=== PATIENT | male | born 1955 | race Caucasian/White ===

== ENCOUNTER 2020-01-09 14:35 | IRF | payer MEDICARE, OTHER, SELFPAY ==
[2020-01-09 15:04] VITALS: O2SAT 94
--- NOTE | 2020-01-09 15:16 | ADMGEN ---
This patient, Get Pruitt, was admitted to [facility] Room 223-02. Patient/family oriented to hospital policies and general routines including ID bracelet, bed and alarms, visiting hours, pain management, procedures, bathroom and other care routines, personal items, smoking policy, room service/diet, and visiting hours. Information on how to activate the Rapid Response Team has been discussed. Patient/Family are encouraged to report perceived risks to care and to ask questions if they do not understand what they are told or what they should do. Patient [facility] transported [facility], ems reported that patient was stable during the ride, patient states I became very anxious and they turned up my oxygen ems had patient on 5 liters. Report rec'd stated he uses 3 liters. Was placed on 3 liters upon arrival. He is alert and oriented. Goal to get home MAK with as much independence as possible
[2020-01-09 16:04] VITALS: BP 119/88; PULSE 68; RESP 18; TEMP 36.1; O2SAT 98; BMI 38.5
[2020-01-09 17:00] VITALS: BMI 38.5
[2020-01-09] MEDS: APIXABAN 5 MG TABLET PO (18:21)
[2020-01-09] MEDS: oxyCODONE HCL (*CRX) 5 MG TAB IR PO (18:22)
[2020-01-09 20:25] VITALS: PULSE 72; RESP 18; O2SAT 95
[2020-01-09] MEDS: SERTRALINE HCL 50 MG TABLET PO (21:11)
[2020-01-09] MEDS: busPIRone HCL 2.5 MG TABLET PO (21:11)
[2020-01-09] MEDS: hydrOXYzine HCL 25 MG TABLET PO (21:11)
[2020-01-09] MEDS: PANTOPRAZOLE 40 MG TABLET PO (21:11)
[2020-01-09] MEDS: ATORVASTATIN 40 MG TABLET PO (21:12)
[2020-01-09] MEDS: busPIRone HCL 5 MG TABLET PO (21:12)
[2020-01-09 22:00] VITALS: BP 98/46; PULSE 72; RESP 22; TEMP 36.4; O2SAT 97
[2020-01-09 22:04] VITALS: PULSE 78; O2SAT 93
[2020-01-10] VITALS (7 sets, daily range): BP systolic 99–114; BP diastolic 52–84; PULSE 71–104; RESP 19–20; TEMP 36.1–36.3; O2SAT 94–98
[2020-01-10 04:35] LABS: Basophils Absolute Auto 0.1 K/mm3 (0.0-0.1); Eosinophils Absolute Auto 0.1 K/mm3 (0-0.3); Eosinophils Percent Auto 1.4 % (0-4.4); Hematocrit 36.6 % (42.0-52.0); Hemoglobin 11.4 g/dL (14.0-18.0); Immature Granulocyte Absolute 0.07 K/mm3 (0.00-0.031); Immature Granulocyte Percent A 0.8 % (0-0.5); Lymphocytes Absolute Auto 1.58 K/mm3 (0.9-3.2); Lymphocytes Percent Auto 19.1 % (18.3-44.2); Mean Corpuscular HGB Conc 31.1 g/dl (32-36); Mean Corpuscular Hemoglobin 30.6 pg (26-34); Mean Corpuscular Volume 98.1 fl (80-100); Mean Platelet Volume 9.9 fl (7.4-10.4); Monocytes Absolute Auto 0.7 K/mm3 (0.1-0.6); Monocytes Percent Auto 8.9 % (2.6-8.5); Neutrophils Absolute Auto 5.7 K/mm3 (1.3-6.7); Neutrophils Percent Auto 68.8 % (45.5-73.1); Platelet Count Result 278 k/mm3 (150-375); Red Blood Count 3.73 M/mm3 (4.6-6.20); Red Cell Distribution Width 14.2 % (11.5-14.5); White Blood Count 8.3 K/mm3 (4.5-10.0)
[2020-01-10 04:52] LABS: Anion Gap 5 mmol/L (8-16); Blood Urea Nitrogen 20 mg/dL (9-20); Calcium 8.8 mg/dL (8.4-10.2); Carbon Dioxide 35 mmol/L (22-30); Chloride 99 mmol/L (98-107); Estimated CRCL calculation 66 ml/min; Estimated Glomerular Filt Rate 55; Glucose 156 mg/dL (75-110); Sodium 139 mmol/L (137-145)
[2020-01-10] MEDS: hydrOXYzine HCL 25 MG TABLET PO ×3 (06:01→21:13)
[2020-01-10 07:58] LABS: Glucose Point of Care 135 (65-105)
[2020-01-10] MEDS: EZETIMIBE 10 MG TABLET PO (09:38)
[2020-01-10] MEDS: busPIRone HCL 2.5 MG TABLET PO ×2 (09:38→21:13)
[2020-01-10] MEDS: FUROSEMIDE 40 MG TABLET PO (09:39)
[2020-01-10] MEDS: PANTOPRAZOLE 40 MG TABLET PO ×2 (09:40→21:13)
[2020-01-10] MEDS: METOPROLOL SUCCINATE EXT REL 50 MG TABCR PO (09:40)
[2020-01-10] MEDS: ASPIRIN 81 MG CHEWABLE TABLET PO (09:42)
[2020-01-10] MEDS: APIXABAN 5 MG TABLET PO ×2 (09:42→17:46)
[2020-01-10] MEDS: metFORMIN HCL XR 500 MG TAB.SR.24H 1000 MG PO (09:43)
[2020-01-10] MEDS: busPIRone HCL 5 MG TABLET PO ×2 (09:43→21:13)
[2020-01-10] MEDS: AMIODARONE HCL 200 MG TABLET PO (09:43)
[2020-01-10] MEDS: LIDOCAINE 5% PATCH 1 PATCH TOPICAL (09:48)
[2020-01-10] MEDS: oxyCODONE HCL (*CRX) 5 MG TAB IR PO (09:49)
--- NOTE | 2020-01-10 09:53 | WPDREHABHP ---
H&P: HPI History of Present Illness Date/Time: HISTORY OF PRESENT ILLNESS: The patient's primary rehab impairment category is [] The etiologic diagnosis is [] I saw this patient [id number] on [] The patient is a [] Therapy was initiated at the acute care facility and the patient transferred to us from [[facility]] on [] FALLS OR SURGERIES: The patient has had [no] major surgeries in the 100 days prior to admission. They had [no] falls in the past year. They had [no] falls with injury in the past year. PAST MEDICAL HISTORY: [] PAST SURGICAL HISTORY: [] SOCIAL HISTORY: [] FAMILY HISTORY: [] PRIOR LEVEL OF FUNCTION: Eating was [INDEPENDENT] Oral Care was [INDEPENDENT] Toileting Hygiene was [INDEPENDENT] Shower/Bathing was [INDEPENDENT] Upper Body Dressing was [INDEPENDENT] Lower Body Dressing was [INDEPENDENT] Donning/[place] Footwear was [INDEPENDENT] Rolling Left and Right was [INDEPENDENT] Sit to Lying was [INDEPENDENT] Lying to Sitting was [INDEPENDENT] Sit to Stand was [INDEPENDENT] Bed to Chair Transfers was [INDEPENDENT] Toilet Transfers was [INDEPENDENT] Walking was [INDEPENDENT] [>500 feet] with [NO DEVICE] Wheelchair Mobility was [NOT APPLICABLE PRIOR TO ADMISSION] Stairs were [INDEPENDENT] CURRENT LEVEL OF FUNCTION: Eating was [SET UP ONLY] Oral Care was [SET UP ONLY] Toileting Hygiene was [] Shower/Bathing was [] Upper Body Dressing was [] Lower Body Dressing was [] Donning/[place] Footwear was [] Rolling Left and Right was [] Sit to Lying was [] Lying to Sitting was [] Sit to Stand was [] Bed to Chair Transfers were [] Toilet Transfers were [] Walking was [] Wheelchair Mobility was [] Stairs were [] GOALS: Our therapists will evaluate the patient and establish the goals. However, upon pre-admission screening, the expected goals were to be [INDEPENDENT] with self-care, [INDEPENDENT] with transfers, and [INDEPENDENT] with functional mobility so that the patient can return home. ESTIMATED LENGTH OF STAY: [10-14 days] POTENTIAL BARRIERS TO DISCHARGE: [Patient lives alone.] [Family needs training.] [Severity of condition.] [Architectural barriers.] ACTIVE CO-MORBIDITIES PRESENT ON ADMISSION: Active co-morbidities include []. The above co-morbidities impact the patient's function and/or functional outcome by [] 01/10/20 09:53 Chief complaint: Spinal/Traumatic C4 Fracture With Surgery Narrative: Get Pruitt is a 64 year old maleHISTORY OF PRESENT ILLNESS: The patient's primary rehab impairment category is The etiologic diagnosis is [] I saw this patient [id number] on [] The patient is a [] Therapy was initiated at the acute care facility and the patient transferred to us from [[facility]] on [] FALLS OR SURGERIES: The patient has had [no] major surgeries in the 100 days prior to admission. They had [no] falls in the past year. They had [no] falls with injury in the past year. PAST MEDICAL HISTORY: [] PAST SURGICAL HISTORY: [] SOCIAL HISTORY: [] FAMILY HISTORY: [] PRIOR LEVEL OF FUNCTION: Eating was [INDEPENDENT] Oral Care was [INDEPENDENT] Toileting Hygiene was [INDEPENDENT] Shower/Bathing was [INDEPENDENT] Upper Body Dressing was [INDEPENDENT] Lower Body Dressing was [INDEPENDENT] Donning/[place] Footwear was [INDEPENDENT] Rolling Left and Right was [INDEPENDENT] Sit to Lying was [INDEPENDENT] Lying to Sitting was [INDEPENDENT] Sit to Stand was [INDEPENDENT] Bed to Chair Transfers was [INDEPENDENT] Toilet Transfers was [INDEPENDENT] Walking was [INDEPENDENT] [>500 feet] with [NO DEVICE] Wheelchair Mobility was [NOT APPLICABLE PRIOR TO ADMISSION] Stairs were [INDEPENDENT] CURRENT LEVEL OF FUNCTION: Eating was [SET UP ONLY] Oral Care was [SET UP ONLY] Toileting Hygiene was [] Shower/Bathing was [] Upper Body Dressing was [] Lower Body Dressing was [] Donning/[place] Footwear was [] Rolling
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
--- NOTE | 2020-01-10 13:22 | RPD ---
INDIVIDUALIZED PLAN OF CARE FOR Get Pruitt Brief Synthesis of Pre-Admission Screen, Post-Admission Evaluation and Therapy Evaluations: The patient presents to rehab with a C4 odontoid type III fracture status post C4 posterior spinal instrumented fusion. Comorbidities include chronic obstructive pulmonary disease, type 2 diabetes mellitus, heart failure with preserved ejection fraction, atrial fibrillation, peripheral vascular disease, coronary artery disease, anxiety, acute postoperative pain, acute blood loss anemia, and left elbow fracture. The complexity of the patient's medical management, nursing, and therapy needs require an inpatient rehab hospital stay with a physician-led interdisciplinary team approach. The patient?s needs will be best met in an intensive program vs. at a lower level of care. The patient requires physician services for medical oversight,management of post-op complications in setting of present comorbidities, and pain management. The patient requires nursing services for anticoagulation therapy, diabetes training, DVT prophylactics, infection protection, medication management and education, pressure relief, and wound care. Deficits include:ADLs, Balance, Endurance, Family Training/Education, Mobility, Pain Management, ROM, Safety, Strength, and Transfers [employer]/Case Management for: Discharge Planning and Patient/Family Counseling Physical Therapy: 5 days per week for 90 minutes. Treatments may include: Therapeutic Exercise, Gait Training, Neuromuscular Re-education, Transfer Training, Community Reintegration, Bed Mobility, Patient/Family Education, Wheelchair Mobility Group Therapy/Concurrent Therapy Rationales: -Improve attention span during functional activities in a distracted environment. -Enhance problem solving and/or adequate judgment skills during functional activities in a distracted environment. -Promote increased safety awareness in a distracted environment to reduce fall risk with functional tasks, transfers, and ambulation to allow a more safe, self-sufficient return to the home environment. -Improve dynamic balance skills to promote safety and independence with functional activities in a distracted environment for maximum gain. Occupational Therapy: 5 days per week for 90 minutes. Treatments may include: Therapeutic Exercise, Therapeutic Activity, Cognitive Training, Self-Care Transfer Training, Community Reintegration, Home Management, Patient/Family Education, Wheelchair Mobility Training, Energy Conservation Training Group Therapy/Concurrent Therapy Rationales: -Allow therapist to observe and teach generalization and carry-over of skills learned in individual therapy. -Enhance problem solving and sequencing skills during therapeutic activities in a distracted environment. -Promote increased safety awareness in a realistic setting to reduce fall risk with functional tasks due to visual and verbal distractions. -Increase functional level with ADLs, ADL transfers and use of adaptive equipment through therapeutic activities with others while promoting safety to allow a more safe, self-sufficient return home. Medical Prognosis: Good Anticipated Length of Stay: 14 days Rehab Goals: Eating Goal: 06-Independent Oral Hygiene Goal: 06-Independent Toileting Hygiene Goal: 06-Independent Shower/Bathe Self Goal: 04-Supervision or Touching Assistance Upper Body Dressing Goal: 04-Supervision or Touching Assistance Lower Body Dressing Goal: 06-Independent Putting On/Taking Off Footwear Goal: 06-Independent Rolling Left and Right Goal: 06-Independent Sit to Lying Goal: 06-Independent Lying to Sitting on Side of Bed Goal: 06-Independent Sit to Stand Goal: 06-Independent Chair/Zuc-jn-[id number] Transfer Goal: 06-Independent Toilet Transfer Goal: 06-Independent Car Transfer Goal: 06-Independent Walk 10' Goal: 06-Independent Walk 50' with Two Turns Goal: 06-Independent Walk 150' Goal: 09-Not Applicable Walk 10' on Une
[2020-01-10] MEDS: SERTRALINE HCL 50 MG TABLET PO (21:13)
[2020-01-10] MEDS: ATORVASTATIN 40 MG TABLET PO (21:13)
[2020-01-11] VITALS (7 sets, daily range): BP systolic 118–141; BP diastolic 54–92; PULSE 66–120; RESP 19–20; TEMP 36.1–36.2; O2SAT 96–100; BMI 38.5
[2020-01-11] MEDS: hydrOXYzine HCL 25 MG TABLET PO ×3 (06:06→20:55)
[2020-01-11 06:13] LABS: Glucose Point of Care 137 (65-105)
[2020-01-11] MEDS: APIXABAN 5 MG TABLET PO ×2 (08:25→16:57)
[2020-01-11] MEDS: EZETIMIBE 10 MG TABLET PO (08:25)
[2020-01-11] MEDS: busPIRone HCL 2.5 MG TABLET PO ×2 (08:26→20:56)
[2020-01-11] MEDS: PANTOPRAZOLE 40 MG TABLET PO ×2 (08:26→20:56)
[2020-01-11] MEDS: metFORMIN HCL XR 500 MG TAB.SR.24H 1000 MG PO (08:26)
[2020-01-11] MEDS: busPIRone HCL 5 MG TABLET PO ×2 (08:26→20:55)
[2020-01-11] MEDS: AMIODARONE HCL 200 MG TABLET PO (08:26)
[2020-01-11] MEDS: FUROSEMIDE 40 MG TABLET PO ×2 (08:26→17:00)
[2020-01-11] MEDS: ASPIRIN 81 MG CHEWABLE TABLET PO (08:27)
[2020-01-11] MEDS: METOPROLOL SUCCINATE EXT REL 50 MG TABCR PO (08:27)
[2020-01-11] MEDS: oxyCODONE HCL (*CRX) 5 MG TAB IR PO (08:28)
--- NOTE | 2020-01-11 08:30 | PC.NURSE ---
pt refuses miralax. states he had a bm this morning. updated.
[2020-01-11] MEDS: ACETAMINOPHEN 500 MG TABLET PO (13:06)
[2020-01-11] MEDS: SERTRALINE HCL 50 MG TABLET PO (20:55)
[2020-01-11] MEDS: ATORVASTATIN 40 MG TABLET PO (20:55)
[2020-01-12 06:00] VITALS: BP 95/66; PULSE 74; RESP 18; TEMP 36.2; O2SAT 98
[2020-01-12] MEDS: oxyCODONE HCL (*CRX) 5 MG TAB IR PO ×2 (06:05→15:16)
[2020-01-12] MEDS: hydrOXYzine HCL 25 MG TABLET PO ×3 (06:07→19:52)
[2020-01-12 07:00] LABS: Glucose Point of Care 166 (65-105)
[2020-01-12] MEDS: metFORMIN HCL XR 500 MG TAB.SR.24H 1000 MG PO (08:50)
[2020-01-12] MEDS: APIXABAN 5 MG TABLET PO ×2 (08:51→17:28)
[2020-01-12] MEDS: busPIRone HCL 2.5 MG TABLET PO ×2 (08:51→19:51)
[2020-01-12] MEDS: ASPIRIN 81 MG CHEWABLE TABLET PO (08:51)
[2020-01-12] MEDS: busPIRone HCL 5 MG TABLET PO ×2 (08:51→19:51)
[2020-01-12] MEDS: PANTOPRAZOLE 40 MG TABLET PO ×2 (08:52→19:51)
[2020-01-12] MEDS: FUROSEMIDE 80 MG TABLET PO (08:52)
[2020-01-12] MEDS: EZETIMIBE 10 MG TABLET PO (08:52)
[2020-01-12 08:53] VITALS: PULSE 74
[2020-01-12] MEDS: AMIODARONE HCL 200 MG TABLET PO (08:53)
[2020-01-12] MEDS: METOPROLOL SUCCINATE EXT REL 50 MG TABCR PO (08:53)
--- NOTE | 2020-01-12 11:45 | WPDNEURORHBP ---
Subjective Date/time seen: 01/12/20 11:45 64 years old with cervical fracture and spinal cord dysfunction in addition to the comorbid conditions of COPD, diabetes mellitus, heart failure with ejection fraction of 60 to 65%, atrial fibrillation, peripheral vascular disease, and coronary artery disease with history of stenting, hypercholesterolemia, hypertension, remains actively involved in the physical therapy Functional Status Ambulation Ability Ability to Ambulate 10 Feet: Contact Guard Ability to Ambulate 50 Feet With 2 Turns: Contact Guard Ambulation Assistive Devices: Cane Exam Narrative: Exam Narrative: on examination today he is awake alert cooperative no acute distress his speech nor dysphasic no dysarthric not dysphonic ear nose throat examination normal heart regular lungs clear abdomen is soft and neuro examination unchanged therapy will be continued as such Objective Data Vital Signs Vital Signs: Vital Signs - 24 hr 01/11/20 14:00 01/11/20 17:00 01/11/20 20:40 Temperature 36.2 C L Pulse Rate 120 H 72 74 Respiratory Rate 20 20 Blood Pressure 118/82 Pulse Oximetry 96 100 01/11/20 22:00 01/12/20 06:00 01/12/20 08:53 Temperature 36.1 C L 36.2 C L Pulse Rate 74 74 74 Respiratory Rate 20 18 Blood Pressure 118/54 L 95/66 L Pulse Oximetry 100 98 Intake/Output Intake/Output: Intake & Output 01/09/20 01/10/20 01/11/20 01/12/20 23:59 23:59 23:59 23:59 Intake Total 480 720 720 Balance 480 720 720 Meds/Results Medications: Active Medications Generic Name Dose Route Start Last Admin Trade Name Freq PRN Reason Stop Dose Admin Acetaminophen 500 mg 01/09/20 16:25 01/11/20 13:06 Acetaminophen 500 Mg Tablet PO 500 mg Q6H PRN Administration Fever Or Pain Rated 1-3 Albuterol 2 puff 01/09/20 16:25 Albuterol Sulfate (*Sp) Aerosol 1 Puff INHALATION Q6H PRN Wheezing Amiodarone HCl 200 mg 01/10/20 09:00 01/12/20 08:53 Amiodarone Hcl 200 Mg Tablet PO 200 mg DAILY HERMELINDA Administration Apixaban 5 mg 01/09/20 17:00 01/12/20 08:51 Apixaban 5 Mg Tablet PO 5 mg BID HERMELINDA Administration Aspirin 81 mg 01/10/20 09:00 01/12/20 08:51 Aspirin 81 Mg Chewable Tablet PO 81 mg DAILY HERMELINDA Administration Atorvastatin Calcium 40 mg 01/09/20 21:00 01/11/20 20:55 Atorvastatin 40 Mg Tablet PO 40 mg HS HERMELINDA Administration Buspirone HCl 5 mg 01/09/20 21:00 01/12/20 08:51 Buspirone Hcl 5 Mg Tablet PO 5 mg Q12HR HERMELINDA Administration Buspirone HCl 2.5 mg 01/09/20 21:00 01/12/20 08:51 Buspirone Hcl 2.5 Mg Tablet PO 2.5 mg Q12HR HERMELINDA Administration Dextrose 12.5 gm 01/09/20 18:38 Dextrose 50% 25 Gm/50 Ml Syringe IV PUSH PRN PRN Hypoglycemia Protocol Ezetimibe 10 mg 01/10/20 09:00 01/12/20 08:52 Ezetimibe 10 Mg Tablet PO 10 mg DAILY HERMELINDA Administration Furosemide 40 mg 01/11/20 18:00 01/11/20 17:00 Furosemide 40 Mg Tablet PO 40 mg EVENING HERMELINDA Administration Furosemide 80 mg 01/12/20 09:00 01/12/20 08:52 Furosemide 80 Mg Tablet PO 80 mg DAILY HERMELINDA Administration Glucagon 1 mg 01/09/20 18:38 Glucagon For Inj 1 Mg Vial IM PRN PRN Hypoglycemia Protocol Glucose 15 gm 01/09/20 18:38 Glucose Oral Gel 15 Gm Of Glucse In 37.5 Gm Tube PO PRN PRN Hypoglycemia Protocol Hydroxyzine HCl 25 mg 01/09/20 22:00 01/12/20 06:07 Hydroxyzine Hcl 25 Mg Tablet PO 25 mg Q8HR HERMELINDA Administration Dextrose 1,000 mls @ 100 mls/hr 01/09/20 18:38 Dextrose 5% 1,000 Ml IVPB PRN PRN Hypoglycemia Protocol Lidocaine 1 patch 01/09/20 16:25 01/10/20 09:48 Lidocaine 5% Patch TOPICAL 1 patch DAILY PRN Administration Pain Metformin HCl 1,000 mg 01/10/20 08:00 01/12/20 08:50 Metformin Hcl Xr 500 Mg Tab.Sr.24h PO 1,000 mg DAILY@0800 HERMELINDA Administration Metoprolol Succinate 50 mg 01/10/20 09:00 01/12/20 08:53
[2020-01-12 14:00] VITALS: BP 101/85; PULSE 86; RESP 20; TEMP 36.8; O2SAT 95
[2020-01-12] MEDS: FUROSEMIDE 40 MG TABLET PO (17:28)
[2020-01-12 19:40] VITALS: PULSE 86; RESP 20; O2SAT 95
[2020-01-12] MEDS: SERTRALINE HCL 50 MG TABLET PO (19:51)
[2020-01-12] MEDS: ATORVASTATIN 40 MG TABLET PO (19:52)
[2020-01-12 21:30] VITALS: PULSE 76; O2SAT 94
[2020-01-12 22:00] VITALS: BP 98/74; PULSE 65; RESP 18; TEMP 36.1; O2SAT 97
[2020-01-13 06:00] VITALS: BP 97/62; PULSE 81; RESP 18; TEMP 36.2; O2SAT 99
[2020-01-13] MEDS: hydrOXYzine HCL 25 MG TABLET PO ×3 (06:01→20:22)
[2020-01-13 06:49] LABS: Glucose Point of Care 213 (65-105)
--- NOTE | 2020-01-13 09:28 | PHAR ---
The patient's home med of Umeclidinium-Vilanterol 62.5-25 mcg/actuation Blister With Device has been verified.
[2020-01-13] MEDS: metFORMIN HCL XR 500 MG TAB.SR.24H 1000 MG PO (09:40)
[2020-01-13 09:41] VITALS: PULSE 81
[2020-01-13] MEDS: AMIODARONE HCL 200 MG TABLET PO (09:41)
[2020-01-13] MEDS: ASPIRIN 81 MG CHEWABLE TABLET PO (09:41)
[2020-01-13] MEDS: APIXABAN 5 MG TABLET PO ×2 (09:41→16:55)
[2020-01-13] MEDS: busPIRone HCL 5 MG TABLET PO ×2 (09:42→20:22)
[2020-01-13] MEDS: EZETIMIBE 10 MG TABLET PO (09:42)
[2020-01-13] MEDS: busPIRone HCL 2.5 MG TABLET PO ×2 (09:42→20:22)
[2020-01-13] MEDS: PANTOPRAZOLE 40 MG TABLET PO ×2 (09:42→20:23)
[2020-01-13] MEDS: FUROSEMIDE 80 MG TABLET PO (09:42)
[2020-01-13 09:43] VITALS: PULSE 81
[2020-01-13] MEDS: METOPROLOL SUCCINATE EXT REL 50 MG TABCR PO (09:43)
[2020-01-13] MEDS: oxyCODONE HCL (*CRX) 5 MG TAB IR PO ×2 (09:45→21:25)
[2020-01-13] MEDS: ACETAMINOPHEN 500 MG TABLET PO (12:14)
[2020-01-13 14:00] VITALS: BP 121/85; PULSE 116; RESP 20; TEMP 35.9; O2SAT 96
--- NOTE | 2020-01-13 14:06 | PCPTNOTE ---
Sanjana Ordonez PT completed an inpatient rehab wheelchair evaluation on Get Pruitt on 01/13/2020. The patient is unable to safely and independently ambulate household distances due to their current impairments. Their diagnosis is Spinal/Traumatic C4 Fracture With Surgery and their impairments include decreased strength, decreased endurance, decreased range of motion, decreased balance, lower extremity weakness, and ataxia. [f pt name]'s weight bearing status is weight-bearing as tolerated on the bilateral lower legs. The patient demonstrates significant functional mobility limitations that impair their ability to participate in mobility-related activities of daily living (MRADLs), including toileting, feeding, dressing, grooming, and bathing in the customary locations in the home. These limitations cannot be sufficiently resolved by the use of an appropriately fitted cane or walker. It is recommended that the patient utilize a wheelchair for functional mobility within the home in order to facilitate optimal safety, independence and participation in all MRADL's and adequately access their home environment on a regular basis. The patient's home provides adequate access between rooms, maneuvering space, and surfaces to accommodate the recommended wheelchair. The use of a wheelchair for functional mobility is strongly recommended and the patient is receptive to using the wheelchair. The use of this wheelchair will significantly improve the patient's ability to participate in MRADLS and the patient will use it on a regular basis in the home. This will facilitate optimal safety, independence, and participation. The patient has demonstrated sufficient physical and mental capabilities needed to safely propel a manual wheelchair that is provided in the home during a typical day. Recommended Wheelchair Frame: Heavy Duty (weight, 269) Recommended Wheelchair Size: 20 x20 Wheelchair Leg Recommendations: bilateral swing away A heavy duty wheelchair is recommended because the patient weighs more than 250 pounds. Anti-tippers are recommended due to patient demonstrating increased risk for falls. They would benefit from anti-tippers with added safety and stabilization. _Sanjana Ordonez ___01/13/20 Evaluating Therapist Date I agree with and certify that the above recommendation is medically necessary. Referring Physician Date I agree with and certify that the above recommendation is medically necessary. Referring Physician Date
[2020-01-13] MEDS: FUROSEMIDE 40 MG TABLET PO (16:55)
[2020-01-13 20:00] VITALS: O2SAT 98
[2020-01-13] MEDS: ATORVASTATIN 40 MG TABLET PO (20:22)
[2020-01-13] MEDS: SERTRALINE HCL 50 MG TABLET PO (20:22)
[2020-01-14] VITALS (9 sets, daily range): BP systolic 84–115; BP diastolic 53–66; PULSE 49–84; RESP 20; TEMP 36.4–36.7; O2SAT 91–100
[2020-01-14] MEDS: hydrOXYzine HCL 25 MG TABLET PO ×2 (06:24→14:25)
[2020-01-14 06:30] LABS: Glucose Point of Care 140 (65-105)
[2020-01-14] MEDS: ASPIRIN 81 MG CHEWABLE TABLET PO (09:01)
[2020-01-14] MEDS: FUROSEMIDE 80 MG TABLET PO (09:01)
[2020-01-14] MEDS: AMIODARONE HCL 200 MG TABLET PO (09:01)
[2020-01-14] MEDS: APIXABAN 5 MG TABLET PO ×2 (09:01→17:23)
[2020-01-14] MEDS: PANTOPRAZOLE 40 MG TABLET PO ×2 (09:02→21:00)
[2020-01-14] MEDS: busPIRone HCL 5 MG TABLET PO ×2 (09:02→21:00)
[2020-01-14] MEDS: METOPROLOL SUCCINATE EXT REL 50 MG TABCR PO (09:02)
[2020-01-14] MEDS: EZETIMIBE 10 MG TABLET PO (09:02)
[2020-01-14] MEDS: metFORMIN HCL XR 500 MG TAB.SR.24H 1000 MG PO (09:03)
[2020-01-14] MEDS: polyethylene glycoL 3350 17 GM POWD.PACK PO (09:04)
[2020-01-14] MEDS: busPIRone HCL 2.5 MG TABLET PO ×2 (09:05→20:59)
--- NOTE | 2020-01-14 12:36 | WPDNEUROPN ---
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: Code(s): S12.34XB - Type III traumatic spondylolisthesis of fourth cervical vertebra, initial encounter for open fracture Status: Acute Additional Plan stable will continue the treatment as such Exam Narrative: Exam Narrative: reveals him to be awake alert cooperative in no obvious acute distress ear nose throat examination normal neck supple heart regular lungs clear abdomen is soft protuberant normal bowel sounds neurological examination is unchanged Objective Data Vital Signs Vital Signs: Vital Signs - 24 hr 01/13/20 14:00 01/13/20 20:00 01/14/20 06:00 Temperature 35.9 C L 36.4 C Pulse Rate 116 H 84 Respiratory Rate 20 20 Blood Pressure 121/85 101/64 Pulse Oximetry 96 98 91 01/14/20 08:00 01/14/20 09:01 01/14/20 09:02 Temperature Pulse Rate 84 84 84 Respiratory Rate 20 Blood Pressure Pulse Oximetry 96 Intake/Output Intake/Output: Intake & Output 01/11/20 01/12/20 01/13/20 01/14/20 23:59 23:59 23:59 23:59 Intake Total 720 1200 120 Balance 720 1200 120 Meds/Results Medications: Active Medications Generic Name Dose Route Start Last Admin Trade Name Freq PRN Reason Stop Dose Admin Acetaminophen 500 mg 01/09/20 16:25 01/13/20 12:14 Acetaminophen 500 Mg Tablet PO 500 mg Q6H PRN Administration Fever Or Pain Rated 1-3 Albuterol 2 puff 01/09/20 16:25 Albuterol Sulfate (*Sp) Aerosol 1 Puff INHALATION Q6H PRN Wheezing Amiodarone HCl 200 mg 01/10/20 09:00 01/14/20 09:01 Amiodarone Hcl 200 Mg Tablet PO 200 mg DAILY HERMELINDA Administration Apixaban 5 mg 01/09/20 17:00 01/14/20 09:01 Apixaban 5 Mg Tablet PO 5 mg BID HERMELINDA Administration Aspirin 81 mg 01/10/20 09:00 01/14/20 09:01 Aspirin 81 Mg Chewable Tablet PO 81 mg DAILY HERMELINDA Administration Atorvastatin Calcium 40 mg 01/09/20 21:00 01/13/20 20:22 Atorvastatin 40 Mg Tablet PO 40 mg HS HERMELINDA Administration Buspirone HCl 5 mg 01/09/20 21:00 01/14/20 09:02 Buspirone Hcl 5 Mg Tablet PO 5 mg Q12HR HERMELINDA Administration Buspirone HCl 2.5 mg 01/09/20 21:00 01/14/20 09:05 Buspirone Hcl 2.5 Mg Tablet PO 2.5 mg Q12HR HERMELINDA Administration Dextrose 12.5 gm 01/09/20 18:38 Dextrose 50% 25 Gm/50 Ml Syringe IV PUSH PRN PRN Hypoglycemia Protocol Ezetimibe 10 mg 01/10/20 09:00 01/14/20 09:02 Ezetimibe 10 Mg Tablet PO 10 mg DAILY HERMELINDA Administration Furosemide 40 mg 01/11/20 18:00 01/13/20 16:55 Furosemide 40 Mg Tablet PO 40 mg EVENING HERMELINDA Administration Furosemide 80 mg 01/12/20 09:00 01/14/20 09:01 Furosemide 80 Mg Tablet PO 80 mg DAILY HERMELINDA Administration Glucagon 1 mg 01/09/20 18:38 Glucagon For Inj 1 Mg Vial IM PRN PRN Hypoglycemia Protocol Glucose 15 gm 01/09/20 18:38 Glucose Oral Gel 15 Gm Of Glucse In 37.5 Gm Tube PO PRN PRN Hypoglycemia Protocol Hydroxyzine HCl 25 mg 01/09/20 22:00 01/14/20 06:24 Hydroxyzine Hcl 25 Mg Tablet PO 25 mg Q8HR HERMELINDA Administration Dextrose 1,000 mls @ 100 mls/hr 01/09/20 18:38 Dextrose 5% 1,000 Ml IVPB PRN PRN Hypoglycemia Protocol Lidocaine 1 patch 01/09/20 16:25 01/10/20 09:48 Lidocaine 5% Patch TOPICAL 1 patch DAILY PRN Administration Pain Metformin HCl 1,000 mg 01/10/20 08:00 01/14/20 09:03 Metformin Hcl Xr 500 Mg Tab.Sr.24h PO 1,000 mg DAILY@0800 HERMELINDA Administration Metoprolol Succinate 50 mg 01/10/20 09:00 01/14/20 09:02 Metoprolol Succinate Ext Rel 50 Mg Tabcr PO 50 mg DAILY HERMELINDA Administration Ondansetron HCl 4 mg 01/09/20 16:25 Ondansetron Hcl Odt 4 Mg Tablet PO Q6H PRN Nausea Oxycodone HCl 5 mg 01/09/20 16:25 01/13/20 21:25 Oxycodone Hcl (*Crx) 5 Mg Tab Ir PO 5 mg Q6H PRN Administration Pain
[2020-01-14] MEDS: FUROSEMIDE 40 MG TABLET PO (17:23)
[2020-01-14] MEDS: ATORVASTATIN 40 MG TABLET PO (21:00)
[2020-01-14] MEDS: SERTRALINE HCL 50 MG TABLET PO (21:01)
[2020-01-15] VITALS (10 sets, daily range): BP systolic 94–133; BP diastolic 52–80; PULSE 65–78; RESP 18–22; TEMP 36.2–36.6; O2SAT 96–98
--- NOTE | 2020-01-15 00:54 | PC.NURSE ---
01/14/20 2330 Patient rated his pain a 6/10 on the pain scale and wanted to take Roxicodone for pain. I explained to him that because of his blood pressure I did not feel comfortable giving him the pain medication (because it could decrease his blood pressure more). Patient stated that he felt fine and that he normally runs low. Patient is on Metoprolol and Lasix.
[2020-01-15] MEDS: LIDOCAINE 5% PATCH 1 PATCH TOPICAL (01:19)
[2020-01-15] MEDS: oxyCODONE HCL (*CRX) 5 MG TAB IR PO ×3 (06:22→21:11)
[2020-01-15 06:46] LABS: Glucose Point of Care 145 (65-105)
[2020-01-15] MEDS: hydrOXYzine HCL 25 MG TABLET PO ×3 (06:56→22:33)
[2020-01-15] MEDS: PANTOPRAZOLE 40 MG TABLET PO ×2 (09:13→21:01)
[2020-01-15] MEDS: METOPROLOL SUCCINATE EXT REL 50 MG TABCR PO (09:13)
[2020-01-15] MEDS: EZETIMIBE 10 MG TABLET PO (09:13)
[2020-01-15] MEDS: metFORMIN HCL XR 500 MG TAB.SR.24H 1000 MG PO (09:13)
[2020-01-15] MEDS: APIXABAN 5 MG TABLET PO ×2 (09:14→16:59)
[2020-01-15] MEDS: ASPIRIN 81 MG CHEWABLE TABLET PO (09:14)
[2020-01-15] MEDS: busPIRone HCL 5 MG TABLET PO ×2 (09:14→21:01)
[2020-01-15] MEDS: busPIRone HCL 2.5 MG TABLET PO ×2 (09:14→21:01)
[2020-01-15] MEDS: FUROSEMIDE 80 MG TABLET PO (09:14)
[2020-01-15] MEDS: AMIODARONE HCL 200 MG TABLET PO (09:14)
[2020-01-15] MEDS: FUROSEMIDE 40 MG TABLET PO (17:00)
[2020-01-15] MEDS: ATORVASTATIN 40 MG TABLET PO (21:01)
[2020-01-15] MEDS: SERTRALINE HCL 50 MG TABLET PO (21:01)
[2020-01-16] MEDS: hydrOXYzine HCL 25 MG TABLET PO ×3 (05:14→20:25)
[2020-01-16 06:00] VITALS: BP 96/66; PULSE 87; RESP 20; TEMP 36.1; O2SAT 96
[2020-01-16 06:31] LABS: Glucose Point of Care 259 (65-105)
[2020-01-16 08:28] VITALS: PULSE 86
[2020-01-16] MEDS: AMIODARONE HCL 200 MG TABLET PO (08:28)
[2020-01-16] MEDS: busPIRone HCL 2.5 MG TABLET PO ×2 (08:28→20:24)
[2020-01-16] MEDS: APIXABAN 5 MG TABLET PO ×2 (08:28→17:07)
[2020-01-16] MEDS: EZETIMIBE 10 MG TABLET PO (08:29)
[2020-01-16] MEDS: metFORMIN HCL XR 500 MG TAB.SR.24H 1000 MG PO (08:29)
[2020-01-16] MEDS: PANTOPRAZOLE 40 MG TABLET PO ×2 (08:29→20:25)
[2020-01-16] MEDS: FUROSEMIDE 80 MG TABLET PO (08:29)
[2020-01-16] MEDS: busPIRone HCL 5 MG TABLET PO ×2 (08:29→20:24)
[2020-01-16] MEDS: ASPIRIN 81 MG CHEWABLE TABLET PO (08:29)
[2020-01-16 08:30] VITALS: PULSE 86
[2020-01-16] MEDS: METOPROLOL SUCCINATE EXT REL 50 MG TABCR PO (08:30)
--- NOTE | 2020-01-16 10:14 | WPDNEUROPN ---
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: Code(s): S12.34XB - Type III traumatic spondylolisthesis of fourth cervical vertebra, initial encounter for open fracture Status: Acute Additional Plan stable continue the therapy as such Review of Systems Review of Systems: All systems reviewed & are unremarkable except as noted in HPI and below Exam Narrative: Exam Narrative: on examination he is awake alert cooperative has no specific complaints heart regular lungs clear abdomen protuberant normal bowel sounds neuro examination unchanged Objective Data Vital Signs Vital Signs: Vital Signs - 24 hr 01/15/20 14:00 01/15/20 20:00 01/15/20 21:25 Temperature 36.2 C L Pulse Rate 68 78 72 Respiratory Rate 18 19 Blood Pressure 117/77 Pulse Oximetry 98 97 96 01/15/20 22:00 01/16/20 06:00 01/16/20 08:28 Temperature 36.4 C 36.1 C L Pulse Rate 78 87 86 Respiratory Rate 19 20 Blood Pressure 133/78 96/66 L Pulse Oximetry 97 96 01/16/20 08:30 Temperature Pulse Rate 86 Respiratory Rate Blood Pressure Pulse Oximetry Intake/Output Intake/Output: Intake & Output 01/13/20 01/14/20 01/15/20 01/16/20 23:59 23:59 23:59 23:59 Intake Total 1200 600 720 960 Balance 1200 600 720 960 Meds/Results Medications: Active Medications Generic Name Dose Route Start Last Admin Trade Name Freq PRN Reason Stop Dose Admin Acetaminophen 500 mg 01/09/20 16:25 01/13/20 12:14 Acetaminophen 500 Mg Tablet PO 500 mg Q6H PRN Administration Fever Or Pain Rated 1-3 Albuterol 2 puff 01/09/20 16:25 Albuterol Sulfate (*Sp) Aerosol 1 Puff INHALATION Q6H PRN Wheezing Amiodarone HCl 200 mg 01/10/20 09:00 01/16/20 08:28 Amiodarone Hcl 200 Mg Tablet PO 200 mg DAILY HERMELINDA Administration Apixaban 5 mg 01/09/20 17:00 01/16/20 08:28 Apixaban 5 Mg Tablet PO 5 mg BID HERMELINDA Administration Aspirin 81 mg 01/10/20 09:00 01/16/20 08:29 Aspirin 81 Mg Chewable Tablet PO 81 mg DAILY HERMELINDA Administration Atorvastatin Calcium 40 mg 01/09/20 21:00 01/15/20 21:01 Atorvastatin 40 Mg Tablet PO 40 mg HS HERMELINDA Administration Buspirone HCl 5 mg 01/09/20 21:00 01/16/20 08:29 Buspirone Hcl 5 Mg Tablet PO 5 mg Q12HR HERMELINDA Administration Buspirone HCl 2.5 mg 01/09/20 21:00 01/16/20 08:28 Buspirone Hcl 2.5 Mg Tablet PO 2.5 mg Q12HR HERMELINDA Administration Dextrose 12.5 gm 01/09/20 18:38 Dextrose 50% 25 Gm/50 Ml Syringe IV PUSH PRN PRN Hypoglycemia Protocol Ezetimibe 10 mg 01/10/20 09:00 01/16/20 08:29 Ezetimibe 10 Mg Tablet PO 10 mg DAILY HERMELINDA Administration Furosemide 40 mg 01/11/20 18:00 01/15/20 17:00 Furosemide 40 Mg Tablet PO 40 mg EVENING HERMELINDA Administration Furosemide 80 mg 01/12/20 09:00 01/16/20 08:29 Furosemide 80 Mg Tablet PO 80 mg DAILY HERMELINDA Administration Glucagon 1 mg 01/09/20 18:38 Glucagon For Inj 1 Mg Vial IM PRN PRN Hypoglycemia Protocol Glucose 15 gm 01/09/20 18:38 Glucose Oral Gel 15 Gm Of Glucse In 37.5 Gm Tube PO PRN PRN Hypoglycemia Protocol Hydroxyzine HCl 25 mg 01/09/20 22:00 01/16/20 05:14 Hydroxyzine Hcl 25 Mg Tablet PO 25 mg Q8HR HERMELINDA Administration Dextrose 1,000 mls @ 100 mls/hr 01/09/20 18:38 Dextrose 5% 1,000 Ml IVPB PRN PRN Hypoglycemia Protocol Lidocaine 1 patch 01/09/20 16:25 01/15/20 01:19 Lidocaine 5% Patch TOPICAL 1 patch DAILY PRN Administration Pain Metformin HCl 1,000 mg 01/10/20 08:00 01/16/20 08:29 Metformin Hcl Xr 500 Mg Tab.Sr.24h PO 1,000 mg DAILY@0800 HERMELINDA Administration Metoprolol Succinate 50 mg 01/10/20 09:00 01/16/20 08:30 Metoprolol Succinate Ext Rel 50 Mg Tabcr PO 50 mg DAILY HERMELINDA Administration Ondansetron HCl 4 mg 01/09/20 16:25 Ondansetron Hcl Odt 4 Mg Tabl
[2020-01-16 10:31] VITALS: O2SAT 94
--- NOTE | 2020-01-16 13:31 | PCPTNOTE ---
Get [facility] was evaluated for a straight cane on 01/16/2020 by this physical therapist assistant foreman. The straight cane will resolve patient's mobility limitations and will be used for ADL's within the home. The patient can safely use the straight cane. ?The straight cane will resolve the patient?s mobility deficits, including decreased endurance, strength, and balance. Halima Bowen, BRAILLE TEACHER
[2020-01-16] MEDS: oxyCODONE HCL (*CRX) 5 MG TAB IR PO ×2 (13:46→20:29)
[2020-01-16 14:00] VITALS: BP 109/60; PULSE 90; RESP 18; TEMP 36.2; O2SAT 96
[2020-01-16] MEDS: FUROSEMIDE 40 MG TABLET PO (17:07)
[2020-01-16] MEDS: SERTRALINE HCL 50 MG TABLET PO (20:24)
[2020-01-16] MEDS: ATORVASTATIN 40 MG TABLET PO (20:24)
[2020-01-16 20:40] VITALS: BP 100/69; PULSE 85; RESP 16; TEMP 36.9; O2SAT 96
[2020-01-17 05:27] LABS: Basophils Absolute Auto 0.1 K/mm3 (0.0-0.1); Basophils Percent Auto 1.1 % (0.2-1.2); Eosinophils Absolute Auto 0.2 K/mm3 (0-0.3); Eosinophils Percent Auto 1.4 % (0-4.4); Hematocrit 33.6 % (42.0-52.0); Hemoglobin 10.5 g/dL (14.0-18.0); Immature Granulocyte Percent A 0.9 % (0-0.5); Lymphocytes Absolute Auto 1.97 K/mm3 (0.9-3.2); Lymphocytes Percent Auto 17.7 % (18.3-44.2); Mean Corpuscular HGB Conc 31.3 g/dl (32-36); Mean Corpuscular Hemoglobin 30.2 pg (26-34); Mean Corpuscular Volume 96.6 fl (80-100); Mean Platelet Volume 9.6 fl (7.4-10.4); Monocytes Absolute Auto 0.9 K/mm3 (0.1-0.6); Monocytes Percent Auto 8.1 % (2.6-8.5); Neutrophils Absolute Auto 7.9 K/mm3 (1.3-6.7); Neutrophils Percent Auto 70.8 % (45.5-73.1); Platelet Count Result 362 k/mm3 (150-375); Red Blood Count 3.48 M/mm3 (4.6-6.20); White Blood Count 11.2 K/mm3 (4.5-10.0)
[2020-01-17 05:49] LABS: Anion Gap 5 mmol/L (8-16); Blood Urea Nitrogen 16 mg/dL (9-20); Calcium 8.3 mg/dL (8.4-10.2); Carbon Dioxide 37 mmol/L (22-30); Chloride 99 mmol/L (98-107); Estimated CRCL calculation 57 ml/min; Estimated Glomerular Filt Rate 47; Glucose 207 mg/dL (75-110); Potassium 3.5 mmol/L (3.4-5.0); Sodium 141 mmol/L (137-145)
[2020-01-17 05:52] VITALS: BP 98/61; PULSE 63; RESP 16; TEMP 36.5; O2SAT 98
[2020-01-17] MEDS: hydrOXYzine HCL 25 MG TABLET PO (05:54)
[2020-01-17 06:03] LABS: Glucose Point of Care 266 (65-105)
[2020-01-17] MEDS: metFORMIN HCL XR 500 MG TAB.SR.24H 1000 MG PO (09:57)
[2020-01-17 09:58] VITALS: PULSE 63
[2020-01-17] MEDS: ASPIRIN 81 MG CHEWABLE TABLET PO (09:58)
[2020-01-17] MEDS: busPIRone HCL 5 MG TABLET PO (09:58)
[2020-01-17] MEDS: APIXABAN 5 MG TABLET PO (09:58)
[2020-01-17] MEDS: busPIRone HCL 2.5 MG TABLET PO (09:58)
[2020-01-17] MEDS: AMIODARONE HCL 200 MG TABLET PO (09:58)
[2020-01-17 09:59] VITALS: PULSE 63
[2020-01-17] MEDS: EZETIMIBE 10 MG TABLET PO (09:59)
[2020-01-17] MEDS: PANTOPRAZOLE 40 MG TABLET PO (09:59)
[2020-01-17] MEDS: FUROSEMIDE 80 MG TABLET PO (09:59)
[2020-01-17] MEDS: METOPROLOL SUCCINATE EXT REL 50 MG TABCR PO (09:59)
--- NOTE | 2020-01-20 12:30 | PM.DS ---
DS: Admitting Diagnosis Admitting Diagnosis Admitting Diagnosis: Spinal/Traumatic C4 Fracture With SurgeryADMISSION FUNCTION 64 years old right-handed male admitted to the acute rehab of [facility] with etiological diagnosis of C4 odontoid type 3 fracture in addition to the comorbid conditions of 1. COPD 2. Diabetes mellitus type 2 3. Heart failure 4. Atrial fibrillation 5. Peripheral vascular disease 6. Coronary artery disease status post stent placement 6. Hypercholesterolemia 7. Hypertension. Underwent cervical fusion on January 02, 2020 [place] at the time of admission his functional level was as follows Eating independent Oral Care substantial Toileting Hygiene extension Shower/Bathing substantial Upper Body Dressing substantial Lower Body Dressing substantial Donning/Gardena Footwear substantial Rolling Left and Right partial assistance Sit to Lying partial assistance Lying to Sitting partial assistance Sit to Stand supervision Bed to Chair Transfers partial claims assistant Toilet Transfers partial assistance Car Transfers partial claims assistant Walking 10' substantial Walking 50' with Two Turns patient was unable to do so Walking 150' unable to do so Curb or Step substantial 4 Steps dependent 12 Steps unable Picking Up Object supervision [Wheelchair Mobility 50'] supervision [Wheelchair Mobility 150'] unable GOALS: Eating [INDEPENDENT] Oral Care [INDEPENDENT] Toileting Hygiene [INDEPENDENT] Shower/Bathing supervision Upper Body Dressing supervision Lower Body Dressing [INDEPENDENT] Donning/Gardena Footwear [INDEPENDENT] Rolling Left and Right [INDEPENDENT] Sit to Lying [INDEPENDENT] Lying to Sitting [INDEPENDENT] Sit to Stand [INDEPENDENT] Bed to Chair Transfers [INDEPENDENT] Toilet Transfers [INDEPENDENT] Car Transfers [INDEPENDENT] Walking 10' [INDEPENDENT] Walking 50' with Two Turns [INDEPENDENT] Walking 150' not applicable Curb or Step [INDEPENDENT] 4 Steps [INDEPENDENT] 12 Steps supervision Picking Up Object [INDEPENDENT] [Wheelchair Mobility 50'] [INDEPENDENT] [Wheelchair Mobility 150'] [INDEPENDENT] DISCHARGE PERFORMANCE: Eating [INDEPENDENT] Oral Care [INDEPENDENT] Toileting Hygiene [INDEPENDENT] Shower/Bathing supervision Upper Body Dressing supervision Lower Body Dressing partial assistance Donning/Gardena Footwear [INDEPENDENT] Rolling Left and Right [INDEPENDENT] Sit to Lying [INDEPENDENT] Lying to Sitting [INDEPENDENT] Sit to Stand [INDEPENDENT] Bed to Chair Transfers [INDEPENDENT] Toilet Transfers [INDEPENDENT] Car Transfers [INDEPENDENT] Walking 10' [INDEPENDENT] Walking 50' with Two Turns unable Walking 150' [INDEPENDENT] Curb or Step [INDEPENDENT] 4 Steps [INDEPENDENT] 12 Steps unable Picking Up Object [INDEPENDENT] [Wheelchair Mobility 50'] [INDEPENDENT] [Wheelchair Mobility 150'] unable during the entire hospitalization patient has no falls or injuries was actively involved in the therapy and was discharged to his home and his condition significantly improved he was referred to outpatient therapy. Discharge diagnoses remain the same. DS: Summary Time Spent with Patient Time attestation: Total time spent providing and/or coordinating discharge services: Discharge Plan Discharge Discharging Clinician: Sudheer Leonardo Patient Disposition: Home, Self-Care Activity: no driving, as tolerated and follow weight bearing status Diet: diabetic Patient Instructions: Antibiotic Form, Heart Failure (GEN), Elbow Fracture (GEN), Pain Management (GEN), Soft Cervical Collar (ED), Safe Use of Anticoagulants (GEN) Stand Alone Forms: General Discharge Information Follow-up/Referrals: Dr. Gabino Brown [Other] (Appointment on Jan at 1:30PM) Denilson Gomes DO [Other] (make follow up appointment after discharge, schedule for 7 to 10 days) Discharge Medications: New furosemide 40 mg Tablet 40 mg PO EVENING Qty: 30 RF: 0 metoprolol succinate 50 mg
== END 2020-01-17 11:30 | disposition home or self-care (01) | DRG 560 ==
PROVIDERS: Admitting Provider Psychiatry & Neurology Neurology; Visit Provider Psychiatry & Neurology Neurology
DX: S12.390D Other displaced fracture of fourth cervical vertebra, subsequent encounter for fracture with routine healing (principal); I50.30 Unspecified diastolic (congestive) heart failure; I13.0 Hypertensive heart and chronic kidney disease with heart failure and stage 1 through stage 4 chronic kidney disease, or unspecified chronic kidney disease; D62 Acute posthemorrhagic anemia; S42.402D Unspecified fracture of lower end of left humerus, subsequent encounter for fracture with routine healing; E78.00 Pure hypercholesterolemia, unspecified; E11.22 Type 2 diabetes mellitus with diabetic chronic kidney disease; E11.51 Type 2 diabetes mellitus with diabetic peripheral angiopathy without gangrene; F41.9 Anxiety disorder, unspecified; I48.91 Unspecified atrial fibrillation; I25.10 Atherosclerotic heart disease of native coronary artery without angina pectoris; J44.9 Chronic obstructive pulmonary disease, unspecified; R20.2 Paresthesia of skin; N18.9 Chronic kidney disease, unspecified; Z96.653 Presence of artificial knee joint, bilateral; Z91.19 Patient's noncompliance with other medical treatment and regimen; Z87.891 Personal history of nicotine dependence; Z79.84 Long term (current) use of oral hypoglycemic drugs; Z98.1 Arthrodesis status; Z95.5 Presence of coronary angioplasty implant and graft
CPT/HCPCS: 36415; 80048; 85025; 94640; 97110; 97116; 97161; 97166; 97530; 97535; 97542; A9270

== ENCOUNTER 2020-02-12 10:09 | Emergency (ER) | payer MEDICARE, OTHER, SELFPAY ==
--- NOTE | 2020-02-12 10:17 | ED.MALEGU ---
HPI - Male Genitourinary General Chief complaint: Urogenital-Male Stated complaint: possible uti Time Seen by Provider: 02/12/20 10:22 Source: patient and RN notes reviewed Mode of arrival: ambulatory Limitations: no limitations History of Present Illness HPI Narrative: 64-year-old male presents with concern for urinary tract infection. Reports recurrent urinary tract infections. Reports being hospitalized in October for urinary sepsis. He has history of COPD, is on 5 L nasal cannula. He denies frequency, urgency, dysuria, fever, chills, sweats, nausea, vomiting, flank pain. Reports discolored, foul-smelling urine that started yesterday Complaint: hernia Related Data Allergies Allergy/AdvReac Type Severity Reaction Status Date / Time latex AdvReac Blister Verified 01/09/20 16:37 Review of Systems Review of Systems: Narrative: CONSTITUTIONAL: Denies malaise, chills, sweats, or fever. CARDIOVASCULAR: Denies chest pain, palpitations, or edema. RESPIRATORY: Denies dyspnea. GASTROINTESTINAL: Denies abdominal pain, nausea, vomiting, diarrhea, constipation GENITOURINARY: Denies frequency, urgency, flank pain, dysuria. Reports foul-smelling odor, hematuria. MUSCULOSKELETAL: Denies back pain or myalgia. NEUROLOGIC: Denies headache. All systems reviewed & are unremarkable except as noted in HPI and below PMFSH Family History Family History Father Heart disease Mother Cancer Social History Social History Smoking packs per day: 0.50 Smoking cigarettes per day: 10.0 Years smoked: 50 Smoking pack-years: 25.00 Smoking status: Heavy tobacco smoker Tobacco type: cigarettes Second hand tobacco smoke exposure: Yes Alcohol intake: never Substance use: never Gender identity (if verbalized by the patient): Male Spiritual care concerns: No Comments At time of signature, agree with nursing past medical, surgical, social and family history. There is no relevant family history pertinent to the presenting complaint Exam Narrative: Exam Narrative: GENERAL: Well-appearing, well-nourished, and in no acute distress. HEAD: Normocephalic. EYES: PERRLA, conjunctivae clear. NECK: Supple. No lymphadenopathy CHEST: Clear to auscultation. No respiratory distress. HEART: Regular rate and rhythm. ABDOMEN: Soft, nontender upon palpation, nondistended, normal active bowel sounds, no palpable or pulsatile masses, no guarding. No CVA tenderness SKIN: Warm, dry, no rash. NEURO: Alert and oriented x3. PSYCH: Normal mood and affect Course Course Emergency Course: Patient is aware of diagnosis, understands and agrees to treatment plan. Anticipatory guidance given. Patient agrees to follow-up as directed and is aware of reasons to seek care at the emergency department. Portions of this record may have been created with voice recognition software Vital Signs Vital signs: Vital Signs Temperature 99.0 F 02/12/20 10:25 Pulse Rate 117 H 02/12/20 10:25 Respiratory Rate 18 02/12/20 10:25 Blood Pressure 107/77 02/12/20 10:25 Pulse Oximetry 93 02/12/20 10:25 Temperature 99.0 F 02/12/20 10:25 Pulse Rate 117 H 02/12/20 10:25 Respiratory Rate 18 02/12/20 10:25 Blood Pressure 107/77 02/12/20 10:25 Pulse Oximetry 93 02/12/20 10:25 Reviewed. MDM - Male Genitourinary MDM Narrative Medical decision making narrative: Exam findings and UA show no acute concerns or changes; patient is non-toxic appearing and is in no distress. Patient is appropriate for outpatient treatment and follow-up. Lab Data Labs: Urine Glucose Negative Reference Range: Negative Urine Bilirubin 1+ Reference Range: Negative Urine Ketone Negative
[2020-02-12 10:25] VITALS: BP 107/77; PULSE 117; RESP 18; TEMP 37.2; O2SAT 93
== END 2020-02-12 10:47 | disposition home or self-care (01) ==
PROVIDERS: Emergency Provider Nurse Practitioner
DX: N39.0 Urinary tract infection, site not specified (principal); F17.210 Nicotine dependence, cigarettes, uncomplicated; J44.9 Chronic obstructive pulmonary disease, unspecified; Z99.81 Dependence on supplemental oxygen; I48.91 Unspecified atrial fibrillation; I11.0 Hypertensive heart disease with heart failure; I50.9 Heart failure, unspecified; Z95.5 Presence of coronary angioplasty implant and graft; E78.00 Pure hypercholesterolemia, unspecified; E11.9 Type 2 diabetes mellitus without complications; I73.9 Peripheral vascular disease, unspecified; G47.30 Sleep apnea, unspecified; K21.9 Gastro-esophageal reflux disease without esophagitis; Z96.653 Presence of artificial knee joint, bilateral
CPT/HCPCS: 81003; 87077; 87086; 87088; 87186; 99213; G0463